=== PATIENT | male | born 1985 | race Caucasian/White ===

== ENCOUNTER 2017-10-01 03:01 | Emergency (ER) | payer OTHER ==
[~2017-10-01] VITALS: Ht 170.2 cm; Wt 65.8 kg
--- NOTE | 2017-10-01 03:04 | NUR ---
PT AMBULATORY TO ER BED 2. BIBSELF C/O RIGHT FLANK PAIN X 20 MIN. HX KIDNEY STONES. PT PLACED ON FORESTRY FIRE AIDE. VSS/RESP EVEN UNLABORED/NAD NOTED/SKIN WARM AND DRY/AFEBRILE/DENIES N-V-D/AOX4. AWAITNG MD JOINER.
--- NOTE | 2017-10-01 03:20 | NUR ---
20G IV TO L AC X 1 ATTEMPT USING ASEPTIC TECH, BLOOD HANDED OVER TO THE LAB AT BEDSIDE. IV FLUSHES EASILY WITH NS, NO S/S INFILTRATION NOTED AT THIS TIME.
[2017-10-01] MEDS ORDERED: KETOROLAC TROMETHAMINE INJ 30 MG/ML VIAL ONE (03:27)
[2017-10-01] MEDS ORDERED: MORPHINE SULFATE INJ 4 MG/ML DISP.SYRIN ONE ×2 (03:27→04:57)
[2017-10-01] MEDS ORDERED: ONDANSETRON HCL/PF 4 MG/2 ML VIAL ONE (03:27)
[2017-10-01] MEDS ORDERED: MORPHINE SULFATE INJ 2 MG/ML DISP.SYRIN IV ONE ×2 (03:30→05:00)
[2017-10-01] MEDS ORDERED: ONDANSETRON HCL/PF 4 MG/2 ML VIAL IVP ONE (03:30)
[2017-10-01] MEDS ORDERED: IV NS 0.9% 1,000 ML BAG IV ONE (03:30)
[2017-10-01] MEDS ORDERED: KETOROLAC TROMETHAMINE INJ 30 MG/ML VIAL IV ONE (03:30)
[2017-10-01 03:32] LABS: BASOPHILS # (AUTO) 0.1 /CMM (0.0-0.2); BASOPHILS % (AUTO) 1.4 % (0.0-2.0); EOSINOPHILS % (AUTO) 1.6 % (0.0-6.0); HEMATOCRIT 42 % (39-51); HEMOGLOBIN 13.9 g/dL (13.5-17.5); LYMPHOCYTES # (AUTO) 2.9 /CMM (0.8-4.8); MEAN CORPUSCULAR HEMOGLOBIN 31 PG (26.0-33.0); MEAN CORPUSCULAR HGB CONC 33 g/dl (31.0-36.0); MEAN CORPUSCULAR VOLUME 92 fL (80-96); MONOCYTES # (AUTO) 0.5 /CMM (0.1-1.30); MONOCYTES % (AUTO) 8.8 % (2.0-12.0); NEUTROPHILS # (AUTO) 2.4 /CMM (1.8-8.9); NEUTROPHILS % (AUTO) 39.2 % (43.0-81.0); PLATELET COUNT (AUTO) 247 /CMM (150-450); RDW COEFFICIENT OF VARIATION 12.4 (11.5-15.0); RED BLOOD CELL COUNT(AUTO) 4.55 MIL/uL (4.5-6.0)
[2017-10-01 03:43] LABS: CALCIUM, SERUM 8.6 mg/dL (8.5-10.1); CREATININE 1.2 mg/dL (0.6-1.3); POTASSIUM 3.6 mmol/L (3.5-5.1)
[2017-10-01] MEDS ORDERED: LEVO50TA8 PO (03:50)
[2017-10-01] MEDS ORDERED: FURO-145 PO (03:50)
[2017-10-01] MEDS ORDERED: VALS40TA4 PO (03:50)
[2017-10-01] MEDS ORDERED: TAMSULOSIN 0.4 MG CAP.SR.24H ONE (04:57)
[2017-10-01] MEDS ORDERED: TAMSULOSIN 0.4 MG CAP.SR.24H PO ONE (05:00)
--- NOTE | 2017-10-01 05:02 | NUR ---
URINE SPECIMEN OBTAINED AND SENT TO THE LAB.
[2017-10-01 05:10] LABS: APPEARANCE,URINE CLEAR (CLEAR); BILIRUBIN,URINE NEGATIVE (NEGATIVE); BLOOD, URINE 3+ Ery/uL (NEGATIVE); COLOR,URINE YELLOW (YELLOW); KETONES,URINE NEGATIVE (NEGATIVE); LEUKOCYTE ESTERASE ,URINE NEGATIVE (NEGATIVE); NITRITE, URINE NEGATIVE (NEGATIVE); PROTEIN,URINE NEGATIVE (NEGATIVE); UGLUCOSE NEGATIVE (NEGATIVE); UROBILINOGEN,URINE 0.2 EU/dL (0.2)
[2017-10-01 05:28] LABS: BACTERIA,URINE None seen /HPF (None Seen); SQUAMOUS EPITHELIAL CELL,UR Few /HPF (None Seen); WBC,URINE 0-2 /HPF (0-3)
--- NOTE | 2017-10-01 05:33 | NUR ---
IV removed. Catheter intact and site benign. Pressure and 4x4 applied to site. No bleeding noted. Patient discharged with to home in stable condition. Written and verbal after care instructions given, patient instructed not to drive. Patient verbalizes understanding of instruction. Patient ambulatory with a steady gait.
[2017-10-01 05:34] VITALS: BP 124/78
== END 2017-10-01 05:34 | disposition home or self-care (01) ==
LOC: ER 03:07
DX: N20.1 Calculus of ureter (principal); Z87.442 Personal history of urinary calculi
CPT/HCPCS: 36415; 80048; 81001; 85025; 96374; 96375; 96376; 99284; A4606; J1885; J2270 ×2; J2405; J7030; Z7610; 81000-TC

== ENCOUNTER 2020-08-22 16:21 | Emergency (ER) | payer OTHER ==
[~2020-08-22] VITALS: Ht 175.3 cm; Wt 54.4 kg
[~2020-08-22 16:21] MED LIST: FURO-145 PO; LEVO50TA8 PO; VALS40TA4 PO
--- NOTE | 2020-08-22 16:23 | NUR ---
AAOX3, BIB FRIEND C/O LEFT WRIST DEFORMITY AND RIGHT HAND BRUISE S/P FELL OFF HIS MOTORIZED ONE-WHEELED SKATEBOARD -KO, RESP IS EVEN AND UNLABORED WITH NAD NOTED. SKIN IS WARM AND DRY. AWAITING MD FOR EVAL.
[2020-08-22] MEDS ORDERED: HYDROCODONE/APAP 5/325MG TABLET PO ONE (17:00)
[2020-08-22] MEDS ORDERED: HYDROCODONE/APAP 5/325MG TABLET ONE (17:06)
--- NOTE | 2020-08-22 17:09 | NUR ---
XRAY AT BEDSIDE
[2020-08-22] MEDS ORDERED: ONDA4TAB5 PO (18:01)
[2020-08-22] MEDS ORDERED: HYDR-4303 PO (18:01)
[2020-08-22] MEDS ORDERED: IBUP-1955 PO (18:01)
--- NOTE | 2020-08-22 19:28 | NUR ---
Patient discharged to home in stable condition. Written and verbal after care instructions given. Patient verbalizes understanding of instruction. Pt ambulatory with a steady gait
[2020-08-22 19:32] VITALS: BP 121/85
== END 2020-08-22 19:32 | disposition home or self-care (01) ==
LOC: ER 16:26
DX: S52.572A Other intraarticular fracture of lower end of left radius, initial encounter for closed fracture (principal); S52.612A Displaced fracture of left ulna styloid process, initial encounter for closed fracture; S60.511A Abrasion of right hand, initial encounter; M79.671 Pain in right foot; F90.9 Attention-deficit hyperactivity disorder, unspecified type; Z79.899 Other long term (current) drug therapy; V00.131A Fall from skateboard, initial encounter; Y93.51 Activity, roller skating (inline) and skateboarding; Y92.89 Other specified places as the place of occurrence of the external cause; Y99.8 Other external cause status
CPT/HCPCS: 73110; 73130-TC; 73630-TC